=== PATIENT | female | born 1945 | race Hispanic/Latino ===

== ENCOUNTER 2018-08-13 06:52 | Day surgery (SDC) | payer OTHER ==
[2018-08-13 07:31] VITALS: BMI 27.3
[2018-08-13 07:51] VITALS: TEMP 97.3
--- NOTE | 2018-08-13 09:33 | CP.SDSHP ---
Same Day Surgery H & P - History Proposed Procedure: COLONSCOPY Pre-Op Diagnosis: SEE NOTES - Previous Medical/Surgical History Misc: Other Pain: 2.Mild Pain - Allergies Allergies: Allergies No Known Allergies Allergy (Verified 08/13/18 07:31) - Physical Exam General Appearance: N Vital Signs: Vital Signs 08/13/18 07:34 Temperature 97.3 F L Pulse Rate 77 Respiratory 16 Rate Blood Pressure 139/65 O2 Sat by Pulse 97 Oximetry Mental Status: Alert & Oriented x3 Lungs: WNL GI: Other - {Optional Preform as Required} Breast: WNL Abdomen: Other Rectal: Other Integument: WNL : WNL Ortho: WNL - Impression Pt. Evaluated Today:Candidate for Anesthesia & Procedure: Yes - Date & Time Time: 09:33 Short Stay Discharge - Short Stay Discharge Admitting Diagnosis/Reason for Visit: SCREENING Disposition: HOME/ ROUTINE
[2018-08-13] MEDS ORDERED: Propofol 10 mg/ml Inj (20 ML) ONE (09:35)
[2018-08-13] MEDS ORDERED: Etomidate 20 mg/10ml Inj IV ONE (09:35)
[2018-08-13] MEDS ORDERED: Lactated Ringer's 1,000 ML IV ONE (09:35)
[2018-08-13 10:41] VITALS: O2SAT 100
[2018-08-13] MEDS ORDERED: Belladonna-Phenobarbital PO ONE (10:45)
[2018-08-13 11:34] VITALS: BP 131/67; PULSE 77; RESP 12
== END 2018-08-13 11:30 | disposition home or self-care (01) ==
LOC: C.ENDO 06:52
PROVIDERS: ATTEND Specialist
DX: Z12.11 Encounter for screening for malignant neoplasm of colon (principal); K64.8 Other hemorrhoids
CPT/HCPCS: 45378; 88305; J2405; J2704; J7120